=== PATIENT | female | born 1985 | race Caucasian/White ===

== ENCOUNTER 2018-06-10 09:03 | Inpatient (IN) ==
[2018-06-10] MEDS ORDERED: Metoclopramide 10 MG/2 ML VIAL IVP PRN (09:50)
[2018-06-10] MEDS ORDERED: Ondansetron 4 MG/2 ML VIAL IVP PRN (09:50)
[2018-06-10] MEDS ORDERED: Naloxone 0.4 MG/ML INJ IVP PRN (09:50)
[2018-06-10] MEDS ORDERED: Famotidine 20 MG/2 ML VIAL IVP PRN (09:50)
[2018-06-10] MEDS ORDERED: Oxytocin 20 units/ LR 1000 mL 20 UNIT/1,000 ML BAG IVC SCH (10:00)
[2018-06-10] MEDS ORDERED: Ringers Solution, Lactated 1,000 ML IVC SCH (10:00)
[2018-06-10 10:19] LABS: Basophils % 0.1 %; Eosinophils % 0.4 %; Hematocrit 36.9 % (35.3-44.9); Hemoglobin 11.9 g/dL (11.5-15.4); Immature Granulocytes % 0.4 % (0-4); Lymphocytes % 18.5 %; Mean Corpuscular HGB Conc 32.2 g/dL (31.6-35.5); Mean Corpuscular Hemoglobin 25.8 pg (28.0-33.3); Mean Platelet Volume 10.2 fL (9.4-12.4); Monocytes # 0.4 K/mcL (0.0-1.3); Neutrophils # 8.3 K/mcL (1.6-8.9); Platelet Count 281 K/mcL (140-400); Red Blood Count 4.61 M/mcL (3.82-4.97); Red Cell Distribution Width 15.4 % (11.5-14.5); Segmented Neutrophils % 76.6 %
[2018-06-10] MEDS ORDERED: miSOPROStol 25 MCG TABLET PO ONE (11:00)
--- NOTE | 2018-06-10 11:33 | Anesthesia Evaluation PreOp ---
Date of Encounter: 06/10/18 Time of Encounter: 11:31 - Past History Planned Operation: tra Cardiac History: Denies any Significant Hx Pulmonary History: Smoker (1pack per day for 10 years) ETHERNET NETWORK ARCHITECT History: Denies Any Significant HX Other Medical History: Denies Any Significant HX, Hepatic (Hep C) Anesthesia History: No Prior Anesthetic Complications, Past Anesthesia : Yes (37 weeks, ) Alcohol Use: none Drug use: opiates, other (heroine) Medications and Allergies Buprenorphine HCl/Naloxone HCl [Suboxone 8 mg-2 mg Sl Film] 8 mg PO BID 06/01/18 [History] Centrum Specialist 1 tab PO DAILY 06/01/18 [History] Ibuprofen [Motrin] 800 mg PO Q8HR #30 tablet 06/01/18 [Rx] Sulfamethoxazole/Trimeth DS [Bactrim DS] 1 each PO BID #20 tablet 06/01/18 [Rx] Allergy/AdvReac Type Severity Reaction Status Date / Time No Known Allergies Allergy Verified 06/01/18 16:48 - Meds/Allergy Pre-op Review Medications Reviewed: Yes Allergies Reviewed: Yes Beta Blockers on Current Med List: No Anesthesia Results - Labs 06/10/18 09:35 Anesthesia Exam O2 Sat Height 1.68 m Weight 85.8 kg Vital Signs Pulse Resp BP 116 18 123/77 06/10/18 09:30 06/10/18 09:30 06/10/18 09:30 Height: 66 Weight: 85 - HEENT Pupil (Motor): Pupils equal Mallampati: II Teeth: Normal Oral Opening: Greater than 3 - ETHERNET NETWORK ARCHITECT LOC: Oriented [employer]THER[employer] ARCHITECT Motor: Normal RUE, Normal LUE, Normal RLE, Normal LLE, Normal Face [employer] ARCHITECT Sensory: Normal: RUE, LUE, RLE, LLE, Face - Cardiac Rhythm: Regular Murmur: None JVD: No Carotid Bruit: No - Pulmonary Breath Sounds: bilateral Clear Respiratory Effort: Symmetrical Anesthesia Assess/Plan ASA Score: 2 Level of consciousness: Cooperative Anesthetic Plan: Epidural Monitoring Plan: Standard Monitors
--- NOTE | 2018-06-10 12:04 | OB/GYN History & Physical ---
Date of Encounter: 06/10/18 Time of Encounter: 12:01 Assessment and Plan (1) 38 weeks gestation of Current visit: Yes Status: Acute Admit for spontaneous labor and ruptured membranes. (2) Spontaneous rupture of membranes Current visit: Yes Status: Acute Admit for labor and delivery Expectant management, consider augmentation with PO Cytotec or Pitocin. Patient may have epidural when she desires Despite (3) NST (non-stress test) reactive Current visit: Yes Status: Acute FHR 140 bpm, moderate variability, +15x15 accels, no decels. (4) Hepatitis C antibody positive in blood Current visit: Yes Status: Acute Follow-up with primary care provider as necessary (5) Type O blood, Rh negative Current visit: Yes Status: Acute Rhogam evaluation History of Present Illness Chief complaint: SROM at 0530, 38w1d HPI: Ms. Sexton is a 32 year old female at 38 weeks 1 day presents today with spontaneous rupture of membrane at 05 30 this morning. She reports clear fluid with a small amount of pink tinged. She reports positive movement, just less than normal today. She complains of irregular contractions. She is a patient of [facility] and has her records with her today. Patient is a previous heroin user, last use in March of this year area she is on Suboxone, prescribed by a physician on [address] She was positive for chlamydia and Trichomonas during her , has had test of cure that was negative on May 27. Blood type is O- GBS negative Rubella immune HBsAg negative Varicella immune T Pall negative Hepatitis C positive Patient is positive for MRSA on her right hand and just completed a course of Bactrim. No active drainage from the wound, it has scabbed over. Past Med Surg Social Fam HX - Past Medical History Source: patient Medical history: hepatitis, other Additional medical history: MRSA on right hand Psychiatric history: no psych history - Past Surgical History Surgical History: no surgical history Additional surgical history: TONSILS - Social History Smoking Status: Current every day smoker Packs per day: 1 Smokeless Tobacco Status: No Alcohol use: none Drug use: opiates, other (heroine) Current living situation: Home - Independent Activity Level: Independent ambulation Recent Out of Country Travel Within the Last 8 Weeks: No Exposure or Possible Exposure to Illness During Travel: No - Family History Mother Living Status: Still Living Hx Family Medical Disorders: Yes (HYPERTENSION) Obstetrical History - Pregnancies : 4 Para: 3 Term: 3 : 0 Ab's: 0 Livin Medications and Allergies Buprenorphine HCl/Naloxone HCl [Suboxone 8 mg-2 mg Sl Film] 8 mg PO BID 06/01/18 [History] Centrum Specialist 1 tab PO DAILY 06/01/18 [History] Ibuprofen [Motrin] 800 mg PO Q8HR #30 tablet 06/01/18 [Rx] Sulfamethoxazole/Trimeth DS [Bactrim DS] 1 each PO BID #20 tablet 06/01/18 [Rx] Allergy/AdvReac Type Severity Reaction Status Date / Time No Known Allergies Allergy Verified 06/01/18 16:48 Review of System OB - Integumentary Integumentary: as per HPI Exam - Vital Signs Vital signs: Initial Vital Signs Pulse Resp BP 116 18 123/77 06/10/18 09:30 06/10/18 09:30 06/10/18 09:30 - Constitutional Constitutional: well developed, well nourished, no acute distress, average body habitus - Neck Neck exam: full ROM, normal inspection - Lungs Respiratory exam: CTAB - Cardiovascular Cardiovascular exam: RRR, +S1, +S2 - Breasts Breast: bilateral: normal - Abdomen Abdomen: Present: bowel sounds normal, gravid, non tender - Extremities Extremities exam: full ROM, normal capillary refill, normal inspection Deep Tendon Reflex Grade: 2+ Normal - Vulva Vulva: bilateral: normal - Vagina Vagina: Present: normal moisture - Cervix Dilation: 2 Effacement: 50 Station: -2 - Uterus Uterus exam: Present: normal size - Anus/Rectum Anus/Rectum: Present: normal perianal skin Results Result Diagrams: 06/10/18 09:35 Abnormal lab results MCV 80.0 fL (83.0-100.0) L 06/10/18 09:35 MCH 25.8 pg (28.0-33.3) L 06/10/18 09:35 RDW 15.4 % (11.5-14.5) H 06/10/18 09:35 All other labs normal. - VTE Reasons for not Prescribing Prophylaxis: Treatment not Indicated - Low risk for VTE
[2018-06-10 15:05] LABS: Amphetamine Screen,Urine Negative ng/mL (Cutoff=1000); Barbiturate Screen,Urine Negative ng/mL (Cutoff=200); Benzodiazepines Screen,Urine Negative ng/mL (Cutoff=200); Cannabinoid Screen,Urine Negative ng/mL (Cutoff = 50); Cocaine Screen,Urine Negative ng/mL (Cutoff= 300); Opiate Screen,Urine Negative ng/mL (Cutoff=300); Phencyclidine Screen,Urine Negative ng/mL (Cutoff=25)
[2018-06-10] MEDS ORDERED: Epidural Premix (fent/bupiv) 110 ML EP ONE (15:37)
[2018-06-10] MEDS ORDERED: *HR* Ropivacaine/PF 0.2% 20 ML VIAL ONE (15:39)
[2018-06-10] MEDS ORDERED: *HR* FentaNYL (PF) 100 MCG/2 ML VIAL ONE (15:39)
[2018-06-10] MEDS ORDERED: Lidocaine -MPF 1% 5 ML AMPUL ONE (15:39)
--- NOTE | 2018-06-10 15:39 | OB Labor Progress Note ---
Date of Encounter: 06/10/18 Time of Encounter: 15:36 Labor Progress Note - Subjective Subjective: Patient is becoming more uncomfortable with contractions, she is requesting her epidural at this time. - Vital Signs Vital Signs: WNL, afebrile - Cervix Cervix: 2 cm per RN exam - Heart Tones Heart Tones: FHR 135 bpm, moderate variability, +15x15 accels - Urbank Urbank: 2-4 minutes - Interventions Interventions: SVE per RN - Plan Plan: Continue Pitocin augmentation Patient may have epidural Anticipate
[2018-06-10] MEDS ORDERED: *HR* FentaNYL (PF) 100 MCG/2 ML VIAL EP ONE (16:10)
[2018-06-10] MEDS ORDERED: *HR* Ropivacaine/PF 0.2% 20 ML VIAL EP ONE (16:10)
--- NOTE | 2018-06-10 16:12 | Anesthesia Procedures ---
Addendum entered and electronically signed by Richi Nation CRNA 06/11/18 07:16: Infant Delivery Date: 06/10/18 Delivery Time: 23:07 Original Note: Date of Encounter: 06/10/18 Time of Encounter: 16:11 (procedure end time 1700) Procedures: Anesthesia - Epidural/Spinal Patient ID/Chart reviewed: Yes Patient examined: Yes OB Eval: Contractions: Non-stressed pattern Consent Obtained: Yes Supplemental Oxygen: None/Room Air Site Prep: Aseptic Technique Patient position: upright Local Anesthetic: Lidocaine 1% Amount of Local Anesthetic used: 2 Touhy Needle Gauge: 18 Catheter Depth at Skin (cm): 5 Test Dose (1.5% Lido + Epi): Volume given (mls): 3 Test Dose Result: Negative Loading Dose: Fentanyl (mcg): 100 Loading Dose: Other: 0.2% ropi 7cc Loading Dose Administered: Thru Touhy Needle Infusion Med: 0.125% Bupivacaine w/ 2 mcg/ml Fentanyl Infusion Rate (mls/hr): [address]: Tegaderm Interspace Used: L4-L5 Loss of Resistance (HARVINDER): Yes Blood: No CSF: No Paresthesia: No
[2018-06-10] MEDS ORDERED: Epidural Premix (fent/bupiv) 110 ML EP SCH (16:15)
--- NOTE | 2018-06-10 18:09 | OB Labor Progress Note ---
Date of Encounter: 06/10/18 Time of Encounter: 18:06 Labor Progress Note - Subjective Subjective: Patient resting comfortably with epidural in place - Vital Signs Vital Signs: WNL, Afebrile - Cervix Cervix: 3/80/-2 - Heart Tones Heart Tones: FHR 120 bpm, moderate variability, no accels, no decels - One [place] One [place]: Irregular with external monitor - Interventions Interventions: SVE IUPC placed for accurate contraction monitoring - Plan Plan: Continue Pitocin augmentation Frequent position changes Anticipate
--- NOTE | 2018-06-10 20:04 | OB Labor Progress Note ---
Date of Encounter: 06/10/18 Time of Encounter: 20:01 Labor Progress Note - Subjective Subjective: Patient resting without complaint with epidural in place. Currently side lying with peanut ball positioning - Vital Signs Vital Signs: WNL, Afebrile - Cervix Cervix: 4-5/80/-1 - Heart Tones Heart Tones: FHR 135 bpm, moderate variability, +15x15 accels, one prolonged decel that resolved with intrauterine resuscitation measures. - [place]: q2-3 minutes - Interventions Interventions: Position change, Pitocin turned off, IV fluid bolus SVE 4-5/80/-1, Vertex presentation confirmed with bedside ultrasound - Plan Physician notified: Yes Physician notified details: Dr. Willoughby in room for resolution of decel. Plan: Continue laboring. Turn Pitocin back on if reactive NST in 30 minutes time. Frequent position change with peanut ball Anticipate
--- NOTE | 2018-06-10 22:23 | Anesthesia Evaluation Post Op ---
Date of Encounter: 06/10/18 Time of Encounter: 22:21 - Vital Signs Vital Signs: Vital Signs/O2 Sat, Most Current Temp Pulse Resp BP 98.1 F 116 15 123/77 06/10/18 10:15 06/10/18 10:15 06/10/18 10:15 06/10/18 10:15 2215 bp 122/76 hr 76 rr 20 spo2 98 - Lungs Lungs: Clear Ascult./Percussion - Airway Airway: Non-obstructed - Cardiovascular Regular Rate - Mental Status Mental Status: Alert & Oriented, Answers Appropriately - Pain Pain Scale: 2 - Nausea Vomiting Nausea Vomiting: Not Present - Hydration Hydration: NPO, Solis catheter - Discharge PostOp Status: Transfer Patient to floor
--- NOTE | 2018-06-10 23:27 | OB/GYN Procedure Note ---
Delivery - Delivery Date: 06/10/18 Provider: Laura Aldana Intrapartum events: none Delivery induction: none Delivery augmentation: pitocin Delivery monitor: external FHT, internal uterine Anesthesia: epidural Quantitated Blood Loss: 50 - Infant (s) A Infant Delivery Date: 06/10/18 Infant Delivery Time: 23:07 Presentation: vertex Position: LUPE Route of delivery: Gender: Female Viability: Viable Pounds: 6 Ounces: 4 at 1 minute: 8 at 5 mins: 9 Shoulder Dystocia: not encountered Specimens collected: cord blood Placenta: spontaneous Cord: 3 umbilical vessels, nuchal reduced - Repair Episiotomy: none Laceration Description: None - Complications Delivery complications: none Delivery comments: Called to room for variable deceleration and patient with urge to push. Anterior lip noted, able to reduce lip with contraction. Once patient complete, she pushed effectively. Under maternal effort, spontaneous delivery of viable female over intact perineum. placed on maternal abdomen for drying and stimulation. Infant weight 6 lbs. 4 oz., Apgars were 8 and 9 at one and 5 minutes respectively. Cord clamped and cut after pulsation ceased. Spontaneous delivery of intact placenta, EBL 50 mL's. Loose nuchal cord easily reduced after delivery of head. No shoulder dystocia, or meconium encountered. Mother and in kangaroo care for 2 hour recovery. - Disposition Mom disposition: stable in LDR disposition: stable in LDR
[2018-06-11] MEDS ORDERED: Rho Immune Globulin 1,500 UNIT SYRINGE IM PRN (00:23)
[2018-06-11] MEDS ORDERED: Measles/Mumps/Rubella Vacc 0.5 ML VIAL SQ PRN (00:23)
[2018-06-11] MEDS ORDERED: Acetaminophen 325 MG TABLET PO PRN (00:23)
[2018-06-11] MEDS ORDERED: Oxytocin 20 units/ LR 1000 mL 20 UNIT/1,000 ML BAG IVC SCH (00:23)
[2018-06-11] MEDS ORDERED: Oxytocin 20 units/ LR 1000 mL 20 UNIT/1,000 ML BAG IVC ONE (00:37)
[2018-06-11] MEDS: Ibuprofen 600 MG TABLET PO PRN ×2 (03:54→09:17)
[2018-06-11 08:31] LABS: Basophils % 0.1 %; Eosinophils % 0.9 %; Immature Granulocytes % 0.3 % (0-4); Lymphocytes # 2.3 K/mcL (0.6-4.6); Lymphocytes % 14.1 %; Mean Corpuscular HGB Conc 32.4 g/dL (31.6-35.5); Mean Corpuscular Hemoglobin 25.9 pg (28.0-33.3); Mean Corpuscular Volume 80.2 fL (83.0-100.0); Mean Platelet Volume 10.6 fL (9.4-12.4); Monocytes # 0.6 K/mcL (0.0-1.3); Monocytes % 3.7 %; Platelet Count 218 K/mcL (140-400); Red Blood Count 4.24 M/mcL (3.82-4.97); Red Cell Distribution Width 15.4 % (11.5-14.5); Segmented Neutrophils % 80.9 %
[2018-06-11 08:35] LABS: Eosinophils # 0.2 K/mcL (0.0-0.6); Neutrophils # 13.3 K/mcL (1.6-8.9)
--- NOTE | 2018-06-11 08:46 | OB/GYN Procedure Note ---
<Laura Aldana - Last Filed: 06/11/18 08:31> OB-DISPENSING OPTICIAN: Procedure - Diagnosis Date of procedure: 06/11/18 Pre-op diagnosis: Undesired fertility Post-op diagnosis: same - Procedure Procedure: Nexplanon insertion Surgeon: Laura Aldana Was there an restaurant assistant manager present: No Anesthesia provider: Laura Aldana Anesthesia Type: Local Estimated blood loss (cc): 0 Procedure Complications: None Specimens collected: None Disposition: no change Narrative: Patient desires Nexplanon for control and would like to have it placed prior to discharge. Examination: Informed consent was obtained and time out performed. Patient was placed in supine position with left arm in the appropriate position. Betadine was used to prep the arm in sterile fashion. 2% Lidocaine was used for anesthesia. The Nexplanon was inserted in the subcutaneous tissue to the appropriate length then the Nexplanon was released. Both myself and the patient can palpate the dalia without difficulty. Steri-strips and pressure dressing was applied. Patient tolerate the procedure well. Patient was instructed on wound care and is to follow up as needed. Patient educated on back up control for 30 days. Procedure: Correct patient, procedure, and site were verified and time out performed per policy. Therapeutic Injections: 3 mL of Lidocaine given at site of insertion by PIERO Chawla Dr. in room for entirety of procedure for proctoring. <Dora Hernandez - Last Filed: 06/11/18 13:38> OB-DISPENSING OPTICIAN: Procedure - Procedure Narrative: I was present and assisted in the procedure from time out to the dressing. Dora Hernandez DO
[2018-06-11] MEDS ORDERED: Etonogestrel 68 MG IMPLANT IL ONE (09:00)
--- NOTE | 2018-06-11 09:13 | OB/GYN Progress Note ---
Date of Encounter: 06/11/18 Time of Encounter: 09:11 - Assessment and Plan (1) MRSA (methicillin resistant Staphylococcus aureus) infection Current Visit: Yes Status: Acute Wound healed now. Pt on contact precautions. (2) Vaginal delivery Current Visit: Yes Status: Acute Pt meeting all milestones. Observe today given history of SI. Anticipate discharge home PPD#2. (3) Polysubstance abuse Current Visit: Yes Status: Acute Pt's mother bringing home suboxone. Pt aware it will need verified by pharmacy when it arrives to hospital. (4) Hepatitis C antibody positive in blood Current Visit: Yes Status: Acute (5) Type O blood, Rh negative Current Visit: Yes Status: Acute Rhogam if indicated. Subjective - Subjective Interval history: Pt reports tired but otherwise good mood. No other complaints at this time. Patient reports: appetite normal, voiding normally, pain well controlled, ambulating normally [place]: doing well Objective - Latest Vital Signs Latest vital signs: Vital Signs Temp Pulse Resp BP Pulse Ox 06/11/18 07:30 98.0 F 85 16 107/68 06/11/18 03:30 98.1 F 88 16 109/69 99 06/11/18 02:30 98.2 F 80 16 117/73 98 06/11/18 01:28 98.1 F 77 14 118/76 100 06/10/18 10:15 98.1 F 116 15 123/77 06/10/18 09:30 116 18 123/77 Intake and Output 06/10/18 06/11/18 06/11/18 23:59 07:59 15:59 Intake Total 240 / 240 Output Total 800 / 800 Balance -800 / -800 240 / 240 Intake: Oral 240 / 240 Output: Urine 800 / 800 Other: Meal Breakfast Percent of Meal Consumed 100% Weight 85.5 kg Patient Weight 06/11/18 23:59 Weight 85.5 kg - Exam Lungs: bilateral: normal Chest: Normal S1, Normal S2 Extremities: Present: normal Abdomen: Present: soft Uterus: Present: firm Uterus Position: 1 Finger Below Umbilicus - Labs Labs: Laboratory Results - last 24 hr 06/10/18 06/10/18 06/11/18 09:35 12:35 00:39 WBC 10.9 RBC 4.61 Hgb 11.9 Hct 36.9 MCV 80.0 L MCH 25.8 L MCHC 32.2 RDW 15.4 H Plt Count 281 MPV 10.2 Immature Gran % 0.4 Seg Neutrophils % 76.6 Lymphocytes % 18.5 Monocytes % 4.0 Eosinophils % 0.4 Basophils % 0.1 Neutrophils # 8.3 Lymphocytes # 2.0 Monocytes # 0.4 Eosinophils # 0.0 Basophils # 0.0 Urine Opiates Screen Negative Ur Barbiturates Screen Negative Ur Phencyclidine Scrn Negative Ur Amphetamines Screen Negative U Benzodiazepines Scrn Negative Urine Cocaine Screen Negative U Marijuana (THC) Screen Negative Ur Drug Screen Interp See Below Baby's Blood Type O RH NEGATIVE Mother's Blood Type O RH NEGATIVE Rhogam Indicated NO 06/11/18 07:55 WBC 16.4 H D RBC 4.24 Hgb 11.0 L Hct 34.0 L MCV 80.2 L MCH 25.9 L MCHC 32.4 RDW 15.4 H Plt Count 218 MPV 10.6 Immature Gran % 0.3 Seg Neutrophils % 80.9 Lymphocytes % 14.1 Monocytes % 3.7 Eosinophils % 0.9 Basophils % 0.1 Neutrophils # 13.3 H Lymphocytes # 2.3 Monocytes # 0.6 Eosinophils # 0.2 Basophils # 0.0 Urine Opiates Screen Ur Barbiturates Screen Ur Phencyclidine Scrn Ur Amphetamines Screen U Benzodiazepines Scrn Urine Cocaine Screen U Marijuana (THC) Screen Ur Drug Screen Interp Baby's Blood Type Mother's Blood Type Rhogam Indicated
[2018-06-11] MEDS: Prenatal Vit/FA 1 EACH TABLET PO SCH (09:17)
[2018-06-12] MEDS: Prenatal Vit/FA 1 EACH TABLET PO SCH (08:30)
[2018-06-12] MEDS: Ibuprofen 600 MG TABLET PO PRN (08:30)
[2018-06-12 09:48] VITALS: BP 102/69
--- NOTE | 2018-06-12 10:31 | Discharge Summary ---
Date of Encounter: 06/12/18 Time of Encounter: 10:26 - Discharge Diagnosis (1) Vaginal delivery Priority: Primary Status: Acute Comments: S/P vaginal delivery day 2 Pain well controlled Lochia light and without clots VSS Tolerating regular diet; passing flatus Voiding without difficulty Bottle feeding Discharge to guest POC per consult with Dr Darling (2) MRSA (methicillin resistant Staphylococcus aureus) infection Priority: Secondary Status: Acute Comments: Treated and lanced. Patient states she finished ABX (3) Polysubstance abuse Priority: Secondary Status: Acute Comments: Patient states she is on Suboxone and prescribed by non-[facility] practitioner. - Discharge Medications Prescriptions: Ibuprofen [Motrin] 600 mg PO Q6HR PRN #30 tablet PRN Reason: Cramping Docusate [Colace] 100 mg PO BID #30 capsule Ferrous Sulfate 325 mg PO DAILY #90 tablet Home Medications: Buprenorphine HCl/Naloxone HCl [Suboxone 8 mg-2 mg Sl Film] 8 mg PO BID 06/01/18 [History] Centrum Specialist 1 tab PO DAILY 06/01/18 [History] Sulfamethoxazole/Trimeth DS [Bactrim Ds] 1 each PO BID #20 tablet 06/01/18 [Rx] Acetaminophen [Tylenol] 650 mg PO Q6HR PRN tablet 06/12/18 [Rx] Docusate [Colace] 100 mg PO BID #30 capsule 06/12/18 [Rx] Ferrous Sulfate 325 mg PO DAILY #90 tablet 06/12/18 [Rx] Ibuprofen [Motrin] 600 mg PO Q6HR PRN #30 tablet 06/12/18 [Rx] Allergies/Adverse Reactions: Allergy/AdvReac Type Severity Reaction Status Date / Time No Known Allergies Allergy Verified 06/01/18 16:48 Data Procedures and tests throughout hospitalization: Laboratory Tests 06/10/18 06/10/18 06/11/18 09:35 12:35 00:39 WBC 10.9 RBC 4.61 Hgb 11.9 Hct 36.9 MCV 80.0 L MCH 25.8 L MCHC 32.2 RDW 15.4 H Plt Count 281 MPV 10.2 Immature Gran % 0.4 Seg Neutrophils % 76.6 Lymphocytes % 18.5 Monocytes % 4.0 Eosinophils % 0.4 Basophils % 0.1 Neutrophils # 8.3 Lymphocytes # 2.0 Monocytes # 0.4 Eosinophils # 0.0 Basophils # 0.0 Urine Opiates Screen Negative Ur Barbiturates Screen Negative Ur Phencyclidine Scrn Negative Ur Amphetamines Screen Negative U Benzodiazepines Scrn Negative Urine Cocaine Screen Negative U Marijuana (THC) Screen Negative Ur Drug Screen Interp See Below Baby's Blood Type O RH NEGATIVE Mother's Blood Type O RH NEGATIVE Rhogam Indicated NO 06/11/18 07:55 WBC 16.4 H D RBC 4.24 Hgb 11.0 L Hct 34.0 L MCV 80.2 L MCH 25.9 L MCHC 32.4 RDW 15.4 H Plt Count 218 MPV 10.6 Immature Gran % 0.3 Seg Neutrophils % 80.9 Lymphocytes % 14.1 Monocytes % 3.7 Eosinophils % 0.9 Basophils % 0.1 Neutrophils # 13.3 H Lymphocytes # 2.3 Monocytes # 0.6 Eosinophils # 0.2 Basophils # 0.0 Urine Opiates Screen Ur Barbiturates Screen Ur Phencyclidine Scrn Ur Amphetamines Screen U Benzodiazepines Scrn Urine Cocaine Screen U Marijuana (THC) Screen Ur Drug Screen Interp Baby's Blood Type Mother's Blood Type Rhogam Indicated Date of admission: 06/10/18 09:03 Primary care physician: Steve Sykes MD Consults: 06/11/18 00:23 Consult to Managing Principal [CONS] Routine Reason for SW Consult: Suboxone prescribed. Previous drug user Discharging clinician: Diane Denny Anticipated date of discharge: 06/12/18 - Patient Status Disposition: Home, Self-Care Condition: Good Functional capacity at discharge: independent ambulation Overall status at discharge: patient is progressing back to baseline - Discharge Instructions Follow Up With: Steve Sykes MD [Primary Care Provider] - Kerry Prescott CNM [Non-Partnered Physician] - - Diet and Activity Activity: increase activity as tolerated Diet: regular diet Hospital Course Reason for admission: IUP at term Delivery: Episiotomy: none Other procedures: none complications: none Discharge diagnosis: IUP at term delivered baby: female Time spent discussing smoking cessation with patient: 3 to 10 minutes Time Attestation: Total time spent providing and/or coordinating discharge services: Time Spent: Less than 30 minutes Exam - Constitutional Vitals: Temp Pulse Resp BP Pulse Ox 97.8 F 70 16 102/69 100 06/12/18 07:30 06/12/18 07:30 06/12/18 07:30 06/12/18 07:30 06/12/18 07:30 General appearance IM: cooperative, A&O X 3, pleasant - Respiratory Respiratory exam: Present: CTAB - Cardiovascular Cardiovascular exam IM: Present: RRR, +S1, +S2 - GI/Abdominal GI/Abdominal exam IM: normal bowel sounds, soft - Rectal Rectal exam: deferred - Uterine Tone: Firm Uterus Position: At Umbilicus, Midline - Extremities Exam Extremities exam IM: Present: normal capillary refill, normal inspection, radial pulses palpable and symmetrical - Neurological Exam Neurological exam: alert, oriented X3
== END 2018-06-12 11:00 | disposition home or self-care (01) | DRG 560 ==
LOC: 1NENULAB → OBSVTOIN 09:03 → 1NENUOBS 06-11 01:26
PROVIDERS: ADMIT Registered Nurse; ATTEND Registered Nurse